=== PATIENT | female | born 1995 | race Caucasian/White ===

== ENCOUNTER 2018-07-26 20:47 | Emergency (ER) | payer OTHER ==
[~2018-07-26] VITALS: Ht 167.6 cm; Wt 68.9 kg
[2018-07-26 20:53] VITALS: BP 123/81
--- NOTE | 2018-07-26 21:01 | NUR ---
PT GAVE U/A SPECIMEN AND OUT TO LOBBY, [place]
--- NOTE | 2018-07-26 21:15 | NUR ---
PATIENT LEFT WITHOUT BEING SEEN BY DR. HERMOSILLO. NO FURTHER CARE PROVIDED FOR PATIENT.
== END 2018-07-26 21:15 | disposition left against medical advice (07) ==
LOC: MED 20:47
DX: R10.9 Unspecified abdominal pain (principal); Z53.21 Procedure and treatment not carried out due to patient leaving prior to being seen by health care provider
CPT/HCPCS: 81002; 81025